=== PATIENT | male | born 1975 | race Caucasian/White ===

== ENCOUNTER → 2016-04-23 | Outpatient (CLI) | payer BC ==
[~2016-04-23] MED LIST: ATIVAN 1MG T1 MG/TAB PO; LEXAPRO 5MG5 MG PO; XANAX 0.5MG0.5 MG PO
== END ==
LOC: BHSO 15:30
DX: F41.1 Generalized anxiety disorder (principal)

== ENCOUNTER → 2016-11-19 | Outpatient (CLI) | payer BC | LOC: BHSO 16:01 | DX: F41.1 Generalized anxiety disorder (principal) ==

== ENCOUNTER → 2017-05-27 | Outpatient (CLI) | payer BC | LOC: BHSO 16:01 | DX: F41.1 Generalized anxiety disorder (principal) | CPT/HCPCS: G0463 ==

== ENCOUNTER → 2017-12-02 | Outpatient (CLI) | payer BC | LOC: BHSO 16:02 | DX: F33.41 Major depressive disorder, recurrent, in partial remission (principal) | CPT/HCPCS: G0463 ==

== ENCOUNTER → 2018-03-24 | Outpatient (CLI) | payer BC | LOC: BHSO 08:17 | DX: F33.41 Major depressive disorder, recurrent, in partial remission (principal) | CPT/HCPCS: G0463 ==

== ENCOUNTER → 2019-04-06 | Outpatient (CLI) | payer BC | LOC: BHSO 16:24 | DX: F33.42 Major depressive disorder, recurrent, in full remission (principal) | CPT/HCPCS: G0463 ==

== ENCOUNTER → 2019-10-05 | Outpatient (CLI) | payer BC | LOC: BHSO 16:30 | DX: F41.1 Generalized anxiety disorder (principal) | CPT/HCPCS: G0463 ==